=== PATIENT | male | born 1965 | race African-American/Black ===

== ENCOUNTER → 2016-10-08 | Outpatient (CLI) | payer BC ==
--- NOTE | 2016-10-10 09:58 | RSPPFT ---
DATE OF PROCEDURE: 10/08/16 COMMENTS: Spirometry with FVC of 3.5 predicted 5.0, FEV1 of 2.3 predicted 3.6, FEV1/FVC ratio 67% predicted 73%. Mild air trapping is present with RV at 2.5 predicted 2.2. DLCO is within the predicted range. Minimal changes noticed after acutely inhaled bronchodilator treatment. IMPRESSION: On the basis of the above, patient has an obstructive lung defect with minimal response to use of bronchodilator.
== END ==
LOC: HRSP 07:48
PROVIDERS: ATTEND Internal Medicine Pulmonary Disease
DX: D86.9 Sarcoidosis, unspecified (principal); G47.30 Sleep apnea, unspecified
CPT/HCPCS: 94060; 94620; 94726; 94729

== ENCOUNTER → 2017-10-29 | Outpatient (CLI) | payer BC ==
--- NOTE | 2017-11-02 10:49 | RSPPFT ---
DATE OF PROCEDURE: 10/29/17 COMMENTS: Spirometry with FVC of 3.2 predicted 4.9, FEV1 of 2.2 predicted 3.9, FEV1/FVC ratio 70% predicted 81%. Lung volumes are marginally decreased with TLC at 4.9 predicted 7.1. DLCO is 68% of predicted. IMPRESSION: On the basis of the above, patient has a mild restrictive defect.
== END ==
LOC: HRSP 08:14
PROVIDERS: ATTEND Internal Medicine Pulmonary Disease
DX: D86.9 Sarcoidosis, unspecified (principal)
CPT/HCPCS: 94060; 94618; 94726; 94729